=== PATIENT | male | born 1970 | race Caucasian/White ===

== ENCOUNTER 2022-03-21 07:55 | Observation (INO) | payer BC ==
[~2022-03-21] VITALS: Ht 182.9 cm; Wt 108.2 kg
[2022-03-21 09:43] LABS: RED BLOOD COUNT 4.74 M/UL (4.20-5.50); WHITE BLOOD COUNT 6.5 K/UL (4.5-11.0)
[2022-03-21 10:03] LABS: BUN/CREATININE RATIO 13 (0-10)
[2022-03-21] MEDS ORDERED: METFORMIN HCL500 M2 PO (11:20)
[2022-03-21] MEDS ORDERED: ATORVASTATIN CA40 MG PO (11:20)
[2022-03-21] MEDS ORDERED: VITAMIN D21250 MCG PO (11:20)
[2022-03-21] MEDS ORDERED: ASPIRIN EC81 MG PO (11:21)
[2022-03-22 02:56] LABS: HEMOGLOBIN 14.8 gm/dl (14.0-17.5); RED BLOOD COUNT 5.07 M/UL (4.20-5.50); WHITE BLOOD COUNT 7.2 K/UL (4.5-11.0)
[2022-03-22 04:22] LABS: BUN/CREATININE RATIO 14 (0-10)
[2022-03-23 02:25] LABS: HEMOGLOBIN 14.5 gm/dl (14.0-17.5); RED BLOOD COUNT 4.94 M/UL (4.20-5.50); WHITE BLOOD COUNT 6.7 K/UL (4.5-11.0)
[2022-03-23 02:41] LABS: BUN/CREATININE RATIO 16 (0-10)
[2022-03-23] MEDS ORDERED: LOPRESSOR 25 MG25 MG PO (14:02)
== END 2022-03-23 15:15 | disposition home or self-care (01) ==
LOC: ER1 07:55 → CDU 10:35 → PROG CARE 10:35
PROVIDERS: Physician Assistant Medical; ADMIT Internal Medicine
DX: I20.9 Angina pectoris, unspecified (principal); E11.9 Type 2 diabetes mellitus without complications; E78.5 Hyperlipidemia, unspecified; I10 Essential (primary) hypertension; Z20.822 Contact with and (suspected) exposure to COVID-19; E55.9 Vitamin D deficiency, unspecified; I45.10 Unspecified right bundle-branch block; G47.33 Obstructive sleep apnea (adult) (pediatric); Z99.89 Dependence on other enabling machines and devices; Z87.891 Personal history of nicotine dependence; Z79.899 Other long term (current) drug therapy; Z82.49 Family history of ischemic heart disease and other diseases of the circulatory system
CPT/HCPCS: ECHO; 36415; 71045; 78452; 80048; 80053; 80061; 82550; 82553; 82962; 83036; 83735; 84100; 84484; 85025; 85027; 85379; 93005; 93017; 93306; 96372; 99152; 99285; A9502; C1769; C1887; C1894; G0378; J1644; J1650; J2250; J3010; J7040; Q9967; U0002

== ENCOUNTER 2022-05-16 17:25 | Emergency (ER) | payer BC ==
[~2022-05-16 17:25] MED LIST: ASPIRIN EC81 MG PO; ATORVASTATIN CA40 MG PO; LOPRESSOR 25 MG25 MG PO; METFORMIN HCL500 M2 PO; VITAMIN D21250 MCG PO
[2022-05-16 18:26] LABS: HEMOGLOBIN 14.8 gm/dl (14.0-17.5); RED BLOOD COUNT 5.03 M/UL (4.20-5.50); WHITE BLOOD COUNT 8.9 K/UL (4.5-11.0)
[2022-05-16 19:09] LABS: BUN/CREATININE RATIO 17 (0-10)
== END 2022-05-16 21:28 | disposition home or self-care (01) ==
LOC: ER1 17:25
PROVIDERS: Emergency Medicine
DX: R10.9 Unspecified abdominal pain (principal)
CPT/HCPCS: 80053; 81001; 82550; 82553; 83690; 84484; 85025; 96361; 96374; 96375; 99284; J2270; J2405; Q9967